=== PATIENT | male | born 1960 | race African-American/Black ===

== ENCOUNTER 2017-12-19 19:55 | Emergency (ER) | payer OTHER ==
[~2017-12-19] VITALS: Ht 185.4 cm; Wt 110.2 kg
[2017-12-19 20:56] LABS: HEMATOCRIT 36.7 % (38.0-50.0); HEMOGLOBIN 12.3 G/DL (12.5-16.6); MCH 25.7 PG (29.0-34.0); MCHC 33.5 G/DL (30.0-36.0); MCV 76.8 FL (86-99); PLATELET COUNT 266 K/uL (156-360); RBC DIS.WIDTH-CV 15.2 % (11.8-14.6); RBC DIS.WIDTH-SD 42.4 % (39-53); RED BLOOD COUNT 4.78 M/uL (4.00-5.50); WHITE BLOOD COUNT 4.7 K/uL (4.1-10.2)
[2017-12-19 21:09] LABS: CHLORIDE 112 mEq/L (99-109); POTASSIUM 4.2 mEq/L (3.7-5.4); SODIUM 141 mEq/L (136-147)
[2017-12-19 21:10] LABS: GLUCOSE 106 mg/dL (70-99)
[2017-12-19 21:14] LABS: GFR ESTIMATE (CALCULATED) > 59 mL/min/ (58.99-99999)
[2017-12-19 21:15] LABS: UREA NITROGEN (BUN) 9 mg/dL (9-23)
[2017-12-19 21:55] VITALS: BP 122/67
== END 2017-12-19 21:56 | disposition home or self-care (01) ==
LOC: EME 19:55
PROVIDERS: Nurse Practitioner Family
DX: R51 Headache (principal); R09.81 Nasal congestion
CPT/HCPCS: 70450; 80048; 85027; 99281; 99284; J1885; J2765